=== PATIENT | male | born 1990 | race Hispanic/Latino ===

== ENCOUNTER 2018-06-25 16:22 | Inpatient (IN) | payer SELFPAY ==
[2018-06-25] MEDS ORDERED: D5 1/2 NS w/20 mEq KCL 1,000 ML IV SCH (17:00)
--- NOTE | 2018-06-25 17:06 | PDOC.FPRHP ---
- History of Present Illness Chief Complaint: DKA History of Present Illness: 28 y/o male with no PMH presented to outside ED and was dx with DKA in [place]. He has had a several week history of weight loss, polydipsia/phagia/uria, but has had progressive nausea and vomiting (NBNB) that brought him to the ER. He has had trouble keeping anything down. He denies fevers, chest pain, shortness of breath, any skin lesions or abdominal pain. ED Course: Bolus IVF and an insulin gtt started - Allergies/Adverse Reactions Allergies Allergy/AdvReac Type Severity Reaction Status Date / Time No Known Allergies Allergy Verified 02/14/16 01:50 - Home Medications Medication Instructions Recorded Confirmed Type traMADol HCl [Ultram] 1 - 2 mg PO QID PRN #25 tab 02/14/16 Rx - History PMHx: PSHx: FHx: Social: - Review of Systems General: reports: weight/appetite/sleep changes. denies: fever/chills Eyes: denies: eye pain, vision changes ENT: reports: other (painful tongue). denies: nasal congestion, rhinorrhea Respiratory: denies: cough, congestion, shortness of breath Cardiovascular: denies: chest pain, palpitation, edema Gastrointestinal: reports: nausea, vomiting. denies: diarrhea Genitourinary: reports: polyuria. denies: incontinence, dysuria Skin: denies: rashes, lesions Musculoskeletal: denies: pain, tenderness, stiffness Neurological: denies: numbness, syncope, seizure Psychological: denies: anxiety, depression - Vital signs BP: [] HR: [] RR: [] Tmax: [] Pox: []% on [] Wt: [] - Physical Exam Constitutional: NAD, awake, alert and oriented HEENT: normocephalic and atraumatic, PERRLA, other (geographic tongue) Neck: supple, FROM, trachea midline, no LAD, no thyromegaly Chest: no-tender to palpation, no lesions Heart: RRR, normal S1/S2 Lungs: CTAB, no respiratory distress, no wheezing, no retractions Abdomen: soft, non-tender, bowel sounds present, no masses/distention Musculoskeletal: normal structure, normal tone, ROM grossly normal Neurological: no focal deficit, CN II-XII intact, normal sensation Skin: no rash/lesions, good turgor, capillary refill <2 seconds, no jaundice Heme/Lymphatic: no unusual bruising or bleeding, no purpura, no petechia Psychiatric: normal mood and affect, good judgment and insight, intact recent and remote memory FMR H&P: Results - Labs Lab results: I personally reviewed labs and any imaging available from outside facility FMR H&P: A/P - Problem List (1) Diabetic ketoacidosis Current Visit: Yes Status: Acute Code(s): E13.10 - OTH DIABETES MELLITUS WITH KETOACIDOSIS WITHOUT COMA (2) Obesity Current Visit: Yes Status: Acute Code(s): E66.9 - OBESITY, UNSPECIFIED - Plan DKA -insulin gtt per protocol, add K as indicated, continue until gap closed and transition to SQ L+SA -BMP q4h, glucose q1h -no evidence of active infection at this point -TSH, A1c, lipid panel -diet for ppx -lovenox for ppx Obesity -agency legal counsel diet and exercise Other recommendations pending workup and clinical course. FMR H&P: Upper Level - Plan Date/Time: 06/25/18 9674 I, [], have evaluated this patient and agree with findings/plan as outlined by campus recruiting internship resident. Pertinent changes/additions are listed here.
[2018-06-25] MEDS ORDERED: Sodium Chloride 0.9% 1,000 ML IV PRN ×4 (18:47)
[2018-06-25] MEDS ORDERED: CCU Electrolyte Replacement 1 EACH IVPB ONE (18:47)
[2018-06-25] MEDS ORDERED: Dextrose 5 %-0.45 % NaCl 1,000 ML IV PRN (18:47)
[2018-06-25] MEDS ORDERED: NS 0.9% w/ 20 MEQ KCL 1,000 ML IV PRN ×2 (18:47)
[2018-06-25] MEDS ORDERED: CCU ELECTROLYTE REPLACEMENT PROTOCOL FS PRN (18:59)
[2018-06-25] MEDS ORDERED: Potassium Phosphate 9 MMOL in Sodium Chloride 0.9% 100 ML IVPB PRN (18:59)
[2018-06-25] MEDS ORDERED: Magnesium 2 GM/50 ML 2 GM in Premix Bag 1 BAG IVPB PRN (18:59)
[2018-06-25] MEDS ORDERED: PHOS-NAK 1 PKT PACK PO PRN (18:59)
[2018-06-25] MEDS ORDERED: Potassium Phosphate 15 MMOL in Sodium Chloride 0.9% 250 ML 250 ML IV PRN (18:59)
[2018-06-25] MEDS ORDERED: Potassium Phosphate 12 MMOL in Sodium Chloride 0.9% 250 ML 250 ML IV PRN (18:59)
[2018-06-25] MEDS ORDERED: Potassium Chloride 40 MEQ in Premix Bag 1 BAG IVPB PRN (18:59)
[2018-06-25] MEDS ORDERED: Magnesium Oxide 400 MG TAB PO PRN (18:59)
[2018-06-25 19:03] VITALS: BMI 31.1
[2018-06-25 19:28] LABS: Hemoglobin A1c 13.6 % (4.0-6.0)
[2018-06-25 19:45] LABS: Calcium 8.2 mg/dL (7.8-10.44); Chloride 114 mmol/L (98-107); Potassium 3.2 mmol/L (3.5-5.1); Sodium 137 mmol/L (136-145)
[2018-06-25 19:51] LABS: Glucose 196 mg/dL (70-105)
[2018-06-25 19:55] LABS: Calc. Creatinine Clearance 149 mL/min (70-130); Estimated GFR-MDRD 86
[2018-06-25 19:56] LABS: BUN (Urea Nitrogen) 4 mg/dL (8.9-20.6)
[2018-06-25 19:59] LABS: Carbon Dioxide Less than 8 mmol/L (22-29)
[2018-06-25] MEDS: Heparin 5,000 UNITS/ML VIAL SC SCH (20:36)
[2018-06-25] MEDS: Potassium Chloride 40 MEQ in Sodium Chloride 0.9% 250 ML 250 ML IVPB PRN (20:54)
[2018-06-25] MEDS: D5 1/2 NS w/20 mEq KCL 1,000 ML IV PRN (22:17)
[2018-06-25 23:35] LABS: BUN (Urea Nitrogen) 4 mg/dL (8.9-20.6); Calc. Creatinine Clearance 150 mL/min (70-130); Calcium 8.2 mg/dL (7.8-10.44); Chloride 114 mmol/L (98-107); Estimated GFR-MDRD 87; Glucose 188 mg/dL (70-105); Potassium 3.4 mmol/L (3.5-5.1); Sodium 137 mmol/L (136-145)
[2018-06-25 23:38] LABS: Carbon Dioxide Less than 8 mmol/L (22-29)
[2018-06-26 01:49] LABS: Phosphorus 1.9 mg/dL (2.3-4.7)
[2018-06-26 02:19] LABS: Actual Bicarbonate (HCO3a) 6.2 mEq/L (22-28); Calcium, Ionized 1.27 mmol/L (1.12-1.30); Carboxyhemoglobin (COHb) 0.9 gm% (0.0-3.0); Hemoglobin (Hb) 14.9 g/dL (14.0-18.0); O2 Tension (PaO2) 113.1 mmHg (80.0-100.0); Potassium - ABG Lab 3.37 mmol/L (3.70-5.30); pH, Arterial 7.26 (7.35-7.45)
[2018-06-26] MEDS: D5 1/2 NS w/20 mEq KCL 1,000 ML IV PRN ×2 (02:20→09:31)
[2018-06-26 02:21] LABS: CO2 Tension 14.2 mmHg (35.0-45.0); Puncture Site LRA
[2018-06-26] MEDS: Ondansetron PF 4 MG/2 ML Vial IVP PRN (04:13)
[2018-06-26 05:19] LABS: Anion Gap 15 mmol/L (10-20); BUN (Urea Nitrogen) Less than 4 mg/dL (8.9-20.6); Calc. Creatinine Clearance 163 mL/min (70-130); Calcium 8.7 mg/dL (7.8-10.44); Cardiac Risk 3.7 (Less than 4.5); Chloride 114 mmol/L (98-107); Estimated GFR-MDRD Greater than 90; Glucose 219 mg/dL (70-105); Potassium 3.1 mmol/L (3.5-5.1); Sodium 134 mmol/L (136-145)
[2018-06-26 05:23] LABS: Carbon Dioxide 8 mmol/L (22-29)
[2018-06-26] MEDS: Potassium Chloride 40 MEQ in Sodium Chloride 0.9% 250 ML 250 ML IVPB PRN (06:09)
[2018-06-26] MEDS: HUMULIN R 100 UNITS in Sodium Chloride 0.9% 100 ML IVPB SCH ×2 (06:23→14:56)
--- NOTE | 2018-06-26 06:42 | PDOC.FM ---
- Subjective Subjective: Mr. Guardado says he feels about the same as when he came in. He denies CP, heart palpitations. Says overnight there were times he felt he was breathing fast. - Objective Vital Signs & Weight: Vital Signs (12 hours) Temp Pulse Ox 06/26/18 03:45 99.0 F 06/25/18 23:31 97.9 F 06/25/18 20:00 98 06/25/18 19:43 97.8 F 06/25/18 18:47 97.9 F Weight Weight 98.5 kg Most Recent Monitor Data Heart Rate from ECG 112 NIBP 105/73 NIBP BP-Mean 83 Respiration from ECG 16 I&O: 06/24/18 06/25/18 06/26/18 06:59 06:59 06:59 Intake Total 3948 Output Total 2950 Balance 998 Result Diagrams: 06/26/18 10:20 Phys Exam - Physical Examination Constitutional: NAD Respiratory: no wheezing, clear to auscultation bilateral Cardiovascular: no significant murmur sinus tachycardia Gastrointestinal: soft, non-tender, no distention Musculoskeletal: no edema R thigh wound bandage in place Neurological: non-focal Psychiatric: normal affect Skin: normal turgor Dx/Plan (1) Diabetic ketoacidosis Code(s): E13.10 - OTH DIABETES MELLITUS WITH KETOACIDOSIS WITHOUT COMA Status : Acute (2) Obesity Code(s): E66.9 - OBESITY, UNSPECIFIED Status: Acute (3) STEPHANIA (acute kidney injury) Code(s): N17.9 - ACUTE KIDNEY FAILURE, UNSPECIFIED Status: Acute - Plan Plan: DKA in setting of newly diagnosed diabetes -insulin gtt per protocol, add K as indicated, continue until gap closed and transition to SQ L+SA -BMP q4h, glucose q1h -insulin gtt currently @ 10, minimal improvement in labs overnight due to low insulin rate it appears. - diabetes education - A1c 13.6 - pending c peptide, insulin labs R thigh abscess - drained in outside ED - Blood cx NGTD, wound culture growing staph aureus - start vanc and pending culture sensitivities Obesity -family and marriage counsellor diet and exercise Ppx: lovenox Dispo: pending follow up BMP, gap still open, continue DKA protocol Addendum - Attending - Attending Attestation Date/Time: 06/26/18 1235 I personally evaluated the patient and discussed the management with Dr. Avitia. I agree with the History, Examination, Assessment and Plan documented above with any addition or exceptions noted below. DKA- most recent bicarb was up to 11. Continue per protocol. Gap closed but would wait until bicarb >15 before transitioning to sq insulin. Will need NPH as he is unable to afford lantus/levemir Hypokalemia- concerned that K is only 3.1. He had 40meq ordered at 4 am and it is running but was causing pain in IV so the rate is extremely slow and he has only gotten less than half over 6 hours. Discussed oral replacement but he is nauseated and refuses pills. Will increase amount in IVF (change to D5 1/2NS with 40 meq of K and recheck at 1 pm. If persistently low will need central line access to better increase K. New onset DM- will need nutrition and nursing counseling to ensure compliance.
[2018-06-26] MEDS: Heparin 5,000 UNITS/ML VIAL SC SCH (08:52)
[2018-06-26 10:56] LABS: Anion Gap 12 mmol/L (10-20); BUN (Urea Nitrogen) Less than 4 mg/dL (8.9-20.6); Calc. Creatinine Clearance 161 mL/min (70-130); Calcium 8.8 mg/dL (7.8-10.44); Carbon Dioxide 11 mmol/L (22-29); Chloride 113 mmol/L (98-107); Estimated GFR-MDRD Greater than 90; Glucose 187 mg/dL (70-105); Potassium 3.1 mmol/L (3.5-5.1); Sodium 133 mmol/L (136-145)
[2018-06-26 11:20] LABS: Phosphorus Less than 1.0 mg/dL (2.3-4.7)
[2018-06-26] MEDS: D5 1/2 NS w/40 mEq KCL 1,000 ML IV SCH ×3 (12:41→21:02)
[2018-06-26] MEDS: PHOS-NAK 1 PKT PACK PO PRN ×3 (13:18→23:06)
[2018-06-26 14:07] LABS: Anion Gap 11 mmol/L (10-20); BUN (Urea Nitrogen) Less than 4 mg/dL (8.9-20.6); Calc. Creatinine Clearance 182 mL/min (70-130); Calcium 8.8 mg/dL (7.8-10.44); Carbon Dioxide 12 mmol/L (22-29); Chloride 113 mmol/L (98-107); Estimated GFR-MDRD Greater than 90; Glucose 191 mg/dL (70-105); Potassium 3.1 mmol/L (3.5-5.1); Sodium 133 mmol/L (136-145)
[2018-06-26 14:14] LABS: Magnesium 1.9 mg/dL (1.6-2.6); Phosphorus 1.4 mg/dL (2.3-4.7)
[2018-06-26] MEDS ORDERED: Potassium Chloride 40 MEQ in Sodium Chloride 0.9% 500 ML IVPB SCH (14:30)
[2018-06-26 17:40] LABS: Anion Gap 13 mmol/L (10-20); BUN (Urea Nitrogen) Less than 4 mg/dL (8.9-20.6); Calc. Creatinine Clearance 187 mL/min (70-130); Calcium 8.6 mg/dL (7.8-10.44); Carbon Dioxide 11 mmol/L (22-29); Chloride 111 mmol/L (98-107); Estimated GFR-MDRD Greater than 90; Glucose 182 mg/dL (70-105); Potassium 3.3 mmol/L (3.5-5.1); Sodium 132 mmol/L (136-145)
[2018-06-26] MEDS: Vancomycin HCl 1.25 GM in Sodium Chloride 0.9% 250 ML 250 ML IVPB SCH (21:04)
[2018-06-26 22:12] LABS: Anion Gap 11 mmol/L (10-20); BUN (Urea Nitrogen) Less than 4 mg/dL (8.9-20.6); Calc. Creatinine Clearance 204 mL/min (70-130); Calcium 8.9 mg/dL (7.8-10.44); Carbon Dioxide 13 mmol/L (22-29); Chloride 112 mmol/L (98-107); Estimated GFR-MDRD Greater than 90; Glucose 199 mg/dL (70-105); Potassium 3.2 mmol/L (3.5-5.1); Sodium 133 mmol/L (136-145)
[2018-06-26] MEDS: Potassium Chloride 20 MEQ TAB PO PRN (22:39)
[2018-06-26 22:52] LABS: Acetaminophen Less than 6.0 mcg/mL (10.0-30.0); Alcohol Less than 10 mg/dL (Less than 10); Magnesium 1.4 mg/dL (1.6-2.6); Salicylate Less than 8.0 mg/dL (15.0-30.0)
[2018-06-27] MEDS: Acetaminophen 325 MG TAB PO PRN (00:17)
[2018-06-27] MEDS: D5 1/2 NS w/40 mEq KCL 1,000 ML IV SCH ×3 (01:17→09:24)
[2018-06-27] MEDS: Ondansetron PF 4 MG/2 ML Vial IVP PRN (01:40)
[2018-06-27] MEDS: HUMULIN R 100 UNITS in Sodium Chloride 0.9% 100 ML IVPB SCH (02:29)
[2018-06-27 04:27] LABS: Anion Gap 10 mmol/L (10-20); BUN (Urea Nitrogen) Less than 4 mg/dL (8.9-20.6); Calc. Creatinine Clearance 204 mL/min (70-130); Carbon Dioxide 15 mmol/L (22-29); Chloride 114 mmol/L (98-107); Estimated GFR-MDRD Greater than 90; Glucose 192 mg/dL (70-105); Potassium 3.5 mmol/L (3.5-5.1); Sodium 135 mmol/L (136-145)
[2018-06-27] MEDS: Vancomycin HCl 1.25 GM in Sodium Chloride 0.9% 250 ML 250 ML IVPB SCH (05:07)
[2018-06-27] MEDS: PHOS-NAK 1 PKT PACK PO PRN (05:08)
[2018-06-27 05:40] LABS: Phosphorus 1.3 mg/dL (2.3-4.7)
[2018-06-27] MEDS: Magnesium Oxide 400 MG TAB PO PRN ×3 (06:45→18:36)
[2018-06-27] MEDS ORDERED: Dextrose 5% in Water 1,000 ML IV PRN (08:02)
[2018-06-27] MEDS ORDERED: Dextrose 50% Abboject 50 ML SYRINGE SLOW IVP PRN (08:02)
--- NOTE | 2018-06-27 08:11 | PDOC.FM ---
- Subjective Subjective: Mr. Guardado is feeling well this morning. Denies nausea/vomiting. Desires to eat. - Objective MAR Reviewed: Yes Vital Signs & Weight: Vital Signs (12 hours) Temp Pulse Resp BP Pulse Ox 06/27/18 07:06 98.4 F 06/27/18 04:00 98.5 F 06/27/18 01:21 98.9 F 120 H 20 122/75 99 06/27/18 00:10 100.8 F H 110 H 21 H 120/77 99 Weight Admit Weight 98.5 kg Weight 98.5 kg Most Recent Monitor Data Heart Rate from ECG 118 NIBP 108/78 NIBP BP-Mean 88 Respiration from ECG 23 I&O: 06/26/18 06/27/18 06/28/18 06:59 06:59 06:59 Intake Total 3948 8060 Output Total 2950 4790 Balance 998 3270 Result Diagrams: 06/27/18 14:23 06/27/18 14:23 Phys Exam - Physical Examination Constitutional: NAD Respiratory: no wheezing, clear to auscultation bilateral Cardiovascular: RRR, no significant murmur Gastrointestinal: soft, non-tender, positive bowel sounds Musculoskeletal: no edema wound dressing over R upper thigh I&D site Neurological: non-focal Psychiatric: normal affect Dx/Plan (1) Diabetic ketoacidosis Code(s): E13.10 - OTH DIABETES MELLITUS WITH KETOACIDOSIS WITHOUT COMA Status : Acute (2) Obesity Code(s): E66.9 - OBESITY, UNSPECIFIED Status: Acute (3) STEPHANIA (acute kidney injury) Code(s): N17.9 - ACUTE KIDNEY FAILURE, UNSPECIFIED Status: Acute - Plan Plan: DKA in setting of newly diagnosed diabetes - diabetes education - A1c 13.6 - pending c peptide lab - mag and phos to be replaced - K+ stable, 3.5 this am - on insuling drip, gap now closed, bicarb 15 this am, will start diet, transition to 70/30 insulin 15 U BID with 1-2 hr overlap of insulin drip. q2h BG checks and will space out as possible. repeat BMP this afternoon. Mild SSI. R thigh abscess - drained in outside ED - wound care consulted for dressings, no surrounding erythema - Blood cx NGTD, wound culture growing staph aureus - Vanc (06/27) will discontinue and transition to PO clinda today Obesity -sales counselor diet and exercise Ppx: lovenox Dispo: transition from insulin drip to SC today, if tolerates well will move out of IMCU Addendum - Attending - Attending Attestation Date/Time: 06/27/18 3716 I personally evaluated the patient and discussed the management with Dr. Avitia. I agree with the History, Examination, Assessment and Plan documented above with any addition or exceptions noted below. DKA- patients acidosis has been slow to correct despite IVF, insulin and K replacement. However gap is closed and will transition to sq insulin and q2 hours accucheck. Continue BMP every 6-12 hours pending results. Hypokalemia, hypomagnesemia, hypophosphatemia- replace. T 100.8 overnight. WBC normal. Continue clindamycin for staphy abscess and watch fever curve.
[2018-06-27] MEDS ORDERED: HumuLIN 70/30 (300 UNITS/3 ML VIAL) SC SCH (09:00)
[2018-06-27] MEDS: Enoxaparin Sodium 40 MG/0.4 ML SYRINGE SC SCH (09:01)
[2018-06-27] MEDS: Clindamycin 150 MG CAP PO SCH ×2 (09:01→16:44)
[2018-06-27] MEDS: HumaLOG 300 UNITS/3 ML VIAL SC PRN ×2 (12:59→14:09)
[2018-06-27 14:31] LABS: #Eosinphils 0.1 thou/uL (0.0-0.7); #Monocytes 0.7 thou/uL (0.11-0.59); #Neutrophils 4.3 thou/uL (1.40-6.50); %Basophils 0.3 % (0.0-1.0); %Eosinophils 0.8 % (0.0-10.0); %Lymphocytes 16.6 % (21.0-51.0); %Monocytes 11.8 % (0.0-10.0); %Neutrophils 70.6 % (42.0-75.0); Mean Corpuscular HGB CONC 34.3 g/dL (32.0-36.0); Mean Corpuscular Hemoglobin 30.2 pg (27.0-31.0); Mean Corpuscular Volume 87.9 fL (78.0-98.0); Mean Platelet Volume 8.7 fL (7.4-10.4); Platelet Count 146 thou/uL (130-400); RBC Distribution Width 13.3 % (11.5-14.5); Red Blood Cell (RBC) Count 4.64 mill/uL (4.70-6.10); White Blood Cell (WBC) Count 6.1 thou/uL (4.8-10.8)
[2018-06-27 14:55] LABS: Anion Gap 15 mmol/L (10-20); BUN (Urea Nitrogen) Less than 4 mg/dL (8.9-20.6); Calc. Creatinine Clearance 202 mL/min (70-130); Calcium 8.7 mg/dL (7.8-10.44); Carbon Dioxide 13 mmol/L (22-29); Chloride 108 mmol/L (98-107); Estimated GFR-MDRD Greater than 90; Glucose 230 mg/dL (70-105); Magnesium 1.3 mg/dL (1.6-2.6); Potassium 3.4 mmol/L (3.5-5.1); Sodium 133 mmol/L (136-145)
[2018-06-27] MEDS ORDERED: Insulin Regular 300 UNITS/3 ML VIAL SC SCH (17:00)
[2018-06-27] MEDS ORDERED: Potassium Chloride 20 MEQ TAB PO SCH (17:00)
[2018-06-27] MEDS: NS 0.9% w/ 20 MEQ KCL 1,000 ML/1,000 ML BAG IV SCH ×2 (17:12→21:23)
[2018-06-27 18:24] LABS: Anion Gap 11 mmol/L (10-20); BUN (Urea Nitrogen) Less than 4 mg/dL (8.9-20.6); Calc. Creatinine Clearance 202 mL/min (70-130); Calcium 8.8 mg/dL (7.8-10.44); Carbon Dioxide 18 mmol/L (22-29); Chloride 108 mmol/L (98-107); Estimated GFR-MDRD Greater than 90; Glucose 205 mg/dL (70-105); Magnesium 1.4 mg/dL (1.6-2.6); Phosphorus 2.3 mg/dL (2.3-4.7); Potassium 3.2 mmol/L (3.5-5.1); Sodium 134 mmol/L (136-145)
[2018-06-27] MEDS: Potassium Chloride 20 MEQ TAB PO PRN (18:55)
[2018-06-27] MEDS: HumuLIN 70/30 (300 UNITS/3 ML VIAL) SC SCH (20:58)
[2018-06-27 23:42] LABS: Anion Gap 16 mmol/L (10-20); BUN (Urea Nitrogen) Less than 4 mg/dL (8.9-20.6); Calc. Creatinine Clearance 199 mL/min (70-130); Calcium 8.9 mg/dL (7.8-10.44); Carbon Dioxide 15 mmol/L (22-29); Chloride 109 mmol/L (98-107); Estimated GFR-MDRD Greater than 90; Glucose 173 mg/dL (70-105); Potassium 3.7 mmol/L (3.5-5.1); Sodium 136 mmol/L (136-145)
[2018-06-28] MEDS: Clindamycin 150 MG CAP PO SCH ×3 (00:36→15:59)
[2018-06-28] MEDS: NS 0.9% w/ 20 MEQ KCL 1,000 ML/1,000 ML BAG IV SCH ×3 (01:29→08:57)
[2018-06-28] MEDS: HumaLOG 300 UNITS/3 ML VIAL SC PRN ×5 (06:09→21:09)
[2018-06-28 06:13] LABS: Phosphorus 2.6 mg/dL (2.3-4.7)
[2018-06-28 06:15] LABS: Anion Gap 14 mmol/L (10-20); BUN (Urea Nitrogen) Less than 4 mg/dL (8.9-20.6); Calc. Creatinine Clearance 222 mL/min (70-130); Calcium 8.5 mg/dL (7.8-10.44); Carbon Dioxide 16 mmol/L (22-29); Chloride 109 mmol/L (98-107); Estimated GFR-MDRD Greater than 90; Glucose 172 mg/dL (70-105); Magnesium 1.3 mg/dL (1.6-2.6); Potassium 3.8 mmol/L (3.5-5.1); Sodium 135 mmol/L (136-145)
--- NOTE | 2018-06-28 06:58 | PDOC.FM ---
- Subjective Subjective: Pt states he is doing well this morning. He denies any pain and reports occasional epigastric discomfort. - Objective Vital Signs & Weight: Vital Signs (12 hours) Temp Pulse Ox 06/28/18 03:40 97.8 F 06/27/18 23:44 98.4 F 06/27/18 20:00 99 06/27/18 19:26 99.4 F Weight Admit Weight 98.5 kg Weight 98.5 kg Most Recent Monitor Data Heart Rate from ECG 87 NIBP 118/91 NIBP BP-Mean 100 Respiration from ECG 23 I&O: 06/26/18 06/27/18 06/28/18 06:59 06:59 06:59 Intake Total 3948 8060 4695.5 Output Total 2950 4790 2750 Balance 998 3270 1945.5 Result Diagrams: 06/27/18 14:23 06/28/18 05:15 Phys Exam - Physical Examination Constitutional: NAD HEENT: moist MMs Neck: no JVD, full ROM Respiratory: no wheezing, clear to auscultation bilateral Cardiovascular: RRR, no significant murmur dry skin Gastrointestinal: soft, non-tender, no distention, positive bowel sounds Musculoskeletal: no edema, pulses present Wound dressing over right upper thigh Neurological: moves all 4 limbs Psychiatric: normal affect, A&O x 3 Skin: cap refill <2 seconds Dx/Plan - Plan Plan: This is a 28 yo male with a pmh of obesity DKA in the setting of newly diagnosed diabetes -Likely DM1 based on labs -Anion gap is closed, on 70/30 and will likely move to the floor later today -Replacing mag and potassium -Continue fluids -A1c 13.6, C-peptide 0.5 -Dietetics consult Rt thigh abscess -Wound care consulted -BCx neg, wound cx staph aureus -Clindamycin (06/27) Obesity -Dietetics consult
[2018-06-28] MEDS: HumuLIN 70/30 (300 UNITS/3 ML VIAL) SC SCH ×2 (08:56→21:13)
[2018-06-28] MEDS: Enoxaparin Sodium 40 MG/0.4 ML SYRINGE SC SCH (08:57)
--- NOTE | 2018-06-28 11:37 | PRG ---
DATE OF SERVICE: 06/28/2018 Mr. Guardado is a pleasant 28-year-old male, who was admitted with new onset diabetic ketoacidosis and diabetes. Interestingly, a year or two ago, he had an elevated blood glucose of 280, but did not follow up on this. He likely has a "burned out" type 2 diabetic. In the event, he will need to be on insulin probably for the rest of his life. This morning, he is looking and feeling much better. His chemistries demonstrate near resolution of his DKA. The bicarb is still slightly low at 16. His anion gap is slightly elevated at 14. Renal function is normal with a GFR greater than 90. His fasting glucose is 172. We are switching him over to subcutaneous insulin and will begin feeding him. Clinically, he looks and feels much better. He is afebrile. His vital signs are stable with a blood pressure of 133/90. Respirations are 20. His abscess has been I and D'd. Job ID: [id number]
[2018-06-28 17:45] LABS: Anion Gap 12 mmol/L (10-20); BUN (Urea Nitrogen) Less than 4 mg/dL (8.9-20.6); Calc. Creatinine Clearance 225 mL/min (70-130); Calcium 8.8 mg/dL (7.8-10.44); Carbon Dioxide 24 mmol/L (22-29); Chloride 104 mmol/L (98-107); Estimated GFR-MDRD Greater than 90; Glucose 153 mg/dL (70-105); Potassium 3.2 mmol/L (3.5-5.1); Sodium 137 mmol/L (136-145)
[2018-06-28] MEDS: Acetaminophen 325 MG TAB PO PRN (19:50)
[2018-06-29] MEDS: Clindamycin 150 MG CAP PO SCH ×4 (00:11→23:55)
--- NOTE | 2018-06-29 06:21 | PDOC.FM ---
- Subjective Subjective: Pt states he did well overnight. He denies abdominal pain, SOB, or chest pain. We discussed his insulin and when to use it. - Objective MAR Reviewed: Yes Vital Signs & Weight: Vital Signs (12 hours) Temp Pulse Resp BP Pulse Ox 06/29/18 04:20 98.4 F 80 20 123/66 99 06/29/18 00:10 98.7 F 80 20 127/76 99 06/28/18 19:40 98.8 F 84 20 129/79 99 Weight Admit Weight 98.5 kg Weight 98.5 kg Most Recent Monitor Data Heart Rate from ECG 96 NIBP 125/79 NIBP BP-Mean 94 Respiration from ECG 21 I&O: 06/27/18 06/28/18 06/29/18 06:59 06:59 06:59 Intake Total 8060 4695.5 1986 Output Total 4790 2750 700 Balance 3270 1945.5 1286 Result Diagrams: 06/27/18 14:23 06/29/18 06:30 Phys Exam - Physical Examination Constitutional: NAD HEENT: moist MMs Neck: no JVD, full ROM Respiratory: no wheezing, no rales, clear to auscultation bilateral Cardiovascular: RRR, no significant murmur Gastrointestinal: soft, non-tender Musculoskeletal: no edema, pulses present Neurological: moves all 4 limbs Psychiatric: normal affect, A&O x 3 Skin: cap refill <2 seconds Dx/Plan (1) DM type 1 (diabetes mellitus, type 1) Status: Acute (2) Diabetic ketoacidosis Code(s): E13.10 - OTH DIABETES MELLITUS WITH KETOACIDOSIS WITHOUT COMA Status : Acute (3) Obesity Code(s): E66.9 - OBESITY, UNSPECIFIED Status: Acute (4) STEPHANIA (acute kidney injury) Code(s): N17.9 - ACUTE KIDNEY FAILURE, UNSPECIFIED Status: Acute (5) Hypokalemia Code(s): E87.6 - HYPOKALEMIA Status: Acute - Plan Plan: This is a 28 yo male with a pmh of obesity DKA in the setting of newly diagnosed diabetes -Likely DM1 based on labs -Continue 70/30, increase to effective level -Replacing mag and potassium -Continue fluids -A1c 13.6, C-peptide 0.5 -Dietetics consult Rt thigh abscess -Wound care consulted -BCx neg, wound cx staph aureus -Clindamycin (06/27) Obesity -Dietetics consult Hypokalemia -Replacing, repeat BMP at 1500
[2018-06-29 07:06] LABS: Anion Gap 11 mmol/L (10-20); BUN (Urea Nitrogen) Less than 4 mg/dL (8.9-20.6); Calc. Creatinine Clearance 229 mL/min (70-130); Calcium 8.7 mg/dL (7.8-10.44); Carbon Dioxide 26 mmol/L (22-29); Chloride 103 mmol/L (98-107); Estimated GFR-MDRD Greater than 90; Glucose 138 mg/dL (70-105); Sodium 137 mmol/L (136-145)
[2018-06-29 07:19] LABS: Potassium 2.9 mmol/L (3.5-5.1)
[2018-06-29] MEDS ORDERED: Potassium Chloride 20 MEQ/100 ML PREMIX BAG IVPB SCH (08:00)
[2018-06-29] MEDS: Enoxaparin Sodium 40 MG/0.4 ML SYRINGE SC SCH (08:32)
[2018-06-29] MEDS: HumuLIN 70/30 (300 UNITS/3 ML VIAL) SC SCH ×2 (08:32→21:05)
[2018-06-29] MEDS: Potassium Chloride 20 MEQ TAB PO SCH ×2 (08:32→16:33)
[2018-06-29] MEDS: Acetaminophen 325 MG TAB PO PRN (09:01)
[2018-06-29] MEDS ORDERED: Potassium Chloride 20 MEQ in Sodium Chloride 0.9% 250 ML 250 ML IV SCH (10:00)
--- NOTE | 2018-06-29 12:18 | PRG ---
DATE OF SERVICE: 06/29/2018 SUBJECTIVE: Mr. Guardado is awake and alert this morning. No distress. He is currently on subcu 70/30 insulin with good blood glucose control. We will continue to adjust this over the next 24 hours in anticipation of discharge tomorrow. His hypokalemia needs to be addressed, but otherwise he is much improved. Job ID: [id number]
[2018-06-29 16:16] LABS: Anion Gap 12 mmol/L (10-20); BUN (Urea Nitrogen) Less than 4 mg/dL (8.9-20.6); Calc. Creatinine Clearance 194 mL/min (70-130); Calcium 9.4 mg/dL (7.8-10.44); Carbon Dioxide 28 mmol/L (22-29); Chloride 102 mmol/L (98-107); Estimated GFR-MDRD Greater than 90; Glucose 196 mg/dL (70-105); Potassium 3.4 mmol/L (3.5-5.1); Sodium 139 mmol/L (136-145)
[2018-06-29] MEDS: HumaLOG 300 UNITS/3 ML VIAL SC PRN (16:30)
--- NOTE | 2018-06-30 05:59 | PDOC.FM ---
- Subjective Subjective: Feeling well, no overnight events. Denies episodes of hypoglycemia, confusion, dizziness, tremors. Voiding and stooling. No other concerns. - Objective MAR Reviewed: Yes Vital Signs & Weight: Vital Signs (12 hours) Temp Pulse Resp BP Pulse Ox 06/29/18 23:57 98.9 F 79 18 135/79 97 06/29/18 19:29 99.0 F 72 16 122/76 99 Weight Admit Weight 98.5 kg Weight 98.5 kg Most Recent Monitor Data Heart Rate from ECG 96 NIBP 125/79 NIBP BP-Mean 94 Respiration from ECG 21 I&O: 06/28/18 06/29/18 06/30/18 06:59 06:59 06:59 Intake Total 4695.5 1986 1450 Output Total 2750 700 Balance 1945.5 1286 1450 Result Diagrams: 06/27/18 14:23 06/30/18 07:23 Phys Exam - Physical Examination Constitutional: NAD HEENT: moist MMs Neck: supple Respiratory: no wheezing, clear to auscultation bilateral Cardiovascular: RRR, no significant murmur Gastrointestinal: soft, non-tender, positive bowel sounds Musculoskeletal: no edema, pulses present (dorsalis pedis, radial) Neurological: moves all 4 limbs Psychiatric: normal affect, A&O x 3 Skin: normal turgor Dx/Plan (1) DM type 1 (diabetes mellitus, type 1) Status: Acute (2) Diabetic ketoacidosis Code(s): E13.10 - OTH DIABETES MELLITUS WITH KETOACIDOSIS WITHOUT COMA Status : Acute (3) Hypokalemia Code(s): E87.6 - HYPOKALEMIA Status: Acute (4) Obesity Code(s): E66.9 - OBESITY, UNSPECIFIED Status: Acute (5) STEPHANIA (acute kidney injury) Code(s): N17.9 - ACUTE KIDNEY FAILURE, UNSPECIFIED Status: Acute - Plan Plan: 28yo male with pmh of obesity DKA in the setting of newly diagnosed diabetes - Likely DM1 based on labs - Continue 70/30, Continue to titrate - Replacing Mg and K - A1c 13.6, C-peptide 0.5 - Dietetics consult - Will self administer insulin and preform glucose checks himself today Rt thigh abscess - Wound care consulted - BCx neg, wound cx staph aureus - Continue Clindamycin (06/27) Obesity - Dietetics consult Hypokalemia - KCl 40meq BID - Following with AM BMP Code Status: FULL DVT ppx: Lovenox
[2018-06-30] MEDS ORDERED: HumuLIN 70/30 (300 UNITS/3 ML VIAL) SC SCH ×2 (06:04→09:00)
[2018-06-30 08:03] LABS: Anion Gap 13 mmol/L (10-20); BUN (Urea Nitrogen) 5 mg/dL (8.9-20.6); Calc. Creatinine Clearance 207 mL/min (70-130); Calcium 9.2 mg/dL (7.8-10.44); Carbon Dioxide 27 mmol/L (22-29); Chloride 103 mmol/L (98-107); Estimated GFR-MDRD Greater than 90; Glucose 122 mg/dL (70-105); Potassium 3.5 mmol/L (3.5-5.1); Sodium 139 mmol/L (136-145)
[2018-06-30] MEDS: Clindamycin 150 MG CAP PO SCH ×2 (08:46→15:13)
[2018-06-30] MEDS: Potassium Chloride 20 MEQ TAB PO SCH (08:47)
[2018-06-30] MEDS: Enoxaparin Sodium 40 MG/0.4 ML SYRINGE SC SCH (08:49)
[2018-06-30] MEDS: HumaLOG 300 UNITS/3 ML VIAL SC PRN ×2 (11:00→15:14)
[2018-06-30 11:48] VITALS: BP 126/84; TEMP 98.2
[2018-06-30] MEDS ORDERED: Magnesium Oxide 400 MG TAB PO SCH (13:00)
--- NOTE | 2018-06-30 14:24 | PRG ---
DATE OF SERVICE: 06/30/2018 Mr. Guardado is fine this morning. He is anxious to go home. His blood glucose levels are improving and he will likely be ready for discharge later this afternoon. Job ID: [id number]
--- NOTE | 2018-07-01 04:22 | DIS ---
DATE OF ADMISSION: 06/25/2018 DATE OF DISCHARGE: 06/30/2018 RESIDENT: Zoila Ray, PGY-1. PROCEDURES: None. CONSULTS: None. PRIMARY DIAGNOSES: DKA, newly diagnosed diabetes. SECONDARY DIAGNOSES: 1. Right thigh abscess. 2. Obesity. 3. Hypokalemia. DISCHARGE MEDICATIONS: 1. Clindamycin 300 mg q.8 hours x2 days (new medication). 2. Glucagon 1 vial. 3. Potassium chloride 20 mEq b.i.d. for 3 days. 4. Humulin 70/30, 26 units b.i.d. HOSPITAL COURSE: Mr. Guardado is a 28-year-old male with no past medical history, who presented to the ED in [place], was diagnosed with DKA. He has had a several week history of weight loss, polydipsia, and then progressive nausea and vomiting that resulted in his presentation. In the ED, he received bolus IV fluids and was started on insulin drip. Labs were notable for ABG; pH 7.26, pCO2 of 14.2, PO2 of . Potassium 3.2, chloride 114. The patient had an anion gap. Beta hydroxybutyrate 7.18, phosphorus 1.9, magnesium 1.4. Hemoglobin A1c 13.6%. Glucose 196. Physical exam was unremarkable. The patient was put on DKA protocol, added potassium as needed, it was continued until the gap was closed and the patient was transitioned to subcu 70/30 due to inability to afford Lantus. TSH was normal. The patient was noted to have a right thigh abscess. Wound Care was consulted. Blood cultures were negative. Wound cultures showed Staph aureus. Clindamycin was continued for a total of 5-day course. Dietetics was consulted for diet changes as well as Case Management for outpatient glucometer and insulin acquisition. The patient was able to administer his own insulin and Accu-Cheks prior to discharge. DISPOSITION: Stable. DISCHARGE INSTRUCTIONS: 1. Location: Home. 2. Diet: Carb consistent diabetic diet. 3. Activity: No restrictions. 4. Follow up with [facility] within 3 to 7 days. Job ID: [id number]
== END 2018-06-30 16:03 | disposition home or self-care (01) | DRG 638 ==
LOC: ERS 16:22 → IMCU/EMU 18:45 → 3SE 06-28 14:01
PROVIDERS: ADMIT Emergency Medicine; ATTEND Emergency Medicine
DX: E10.10 Type 1 diabetes mellitus with ketoacidosis without coma (principal); N17.9 Acute kidney failure, unspecified; L02.415 Cutaneous abscess of right lower limb; E66.9 Obesity, unspecified; Z68.31 Body mass index [BMI] 31.0-31.9, adult; E87.6 Hypokalemia; E83.42 Hypomagnesemia; E83.39 Other disorders of phosphorus metabolism
CPT/HCPCS: 36415; 36416; 80048; 80061; 80307; 82010; 82805; 83036; 83525; 83690; 83735; 84100; 84443; 84681; 85025; 96365; J1644; J1650; J1815; J2405; J3370; J3475; J3480; J3490; J7050